=== PATIENT | female | born 1995 | race Two or more races ===

== ENCOUNTER 2023-04-14 10:59 | Emergency (ER) | payer MEDICAID ==
[~2023-04-14] VITALS: Ht 172.7 cm; Wt 182.5 kg
[2023-04-14] MEDS ORDERED: ALBUTEROL SULF 2.5 MG/0.5ML(0.5%) NEB SOLN NEB ONE ×3 (11:30→15:30)
[2023-04-14] MEDS ORDERED: IPRATROPIUM BROM 0.5 MG/2.5ML INH SOL NEB ONE ×3 (11:30→15:15)
[2023-04-14 13:51] VITALS: BP 138/112; PULSE 108; TEMP 99.5
[2023-04-14] MEDS ORDERED: DexAMETHasone SOD PHOS 10MG/1ML VIAL INJ IM ONE (14:15)
[2023-04-14] MEDS ORDERED: BECL40AE11 IN (14:48)
[2023-04-14 15:25] VITALS: RESP 16; O2SAT 96
[2023-04-14] MEDS ORDERED: METH4PAK PO (16:06)
== END 2023-04-14 16:06 | disposition home or self-care (01) ==
LOC: ER 10:59
DX: J45.909 Unspecified asthma, uncomplicated (principal)
CPT/HCPCS: 71045; 94640; 96372; 99285; J1100; J7644

== ENCOUNTER → 2023-07-18 | Outpatient (CLI) | payer MEDICAID ==
[~2023-07-18] MED LIST: ALBUTEROL MEDNEB 2.5 mg/3ml NEB ONE; BECL40AE11 IN; METH4PAK PO
== END | disposition home or self-care (01) ==
LOC: RT 14:30
PROVIDERS: ATTEND Internal Medicine Pulmonary Disease
DX: R06.02 Shortness of breath (principal); R05.9 Cough, unspecified; Z79.899 Other long term (current) drug therapy
CPT/HCPCS: 94060; 94727; 94729